=== PATIENT | male | born 1980 | race Caucasian/White ===

== ENCOUNTER 2019-08-16 02:06 | Emergency (ER) | payer SELFPAY ==
[~2019-08-16] VITALS: Ht 172.7 cm; Wt 70.8 kg
[2019-08-16 02:22] VITALS: BP 132/98
[2019-08-16] MEDS ORDERED: MORPHINE SULFATE 4 MG/ML SYR IVP ONE ×2 (02:40→03:35)
[2019-08-16] MEDS ORDERED: KETOROLAC 30 MG/ML VIAL IVP ONE (02:40)
[2019-08-16] MEDS ORDERED: LIDOCAINE/EPI 1% 1:100000 20 ML VIAL INJ ONE (02:40)
[2019-08-16] MEDS ORDERED: LIDOCAINE JELLY 2% 30 ML TUBE TP ONE (02:40)
--- NOTE | 2019-08-16 02:40 | NUR ---
39 Y/O MALE BIB SELF FOR PENILE PAIN X3 HOURS AFTER HAVING INTERCOURSE WITH AND HAD A PENILE RING "STUCK ON PENIS". PATIENT STATES HE HAS BURNING UPON URINATION. PAIN IS A 10/10. PENILE REGION IS SWOLLEN AND PINK. ERMD MADE AWARE OF STATUS. SIDE RAILSX1. PLACED ONE MONITOR. NKDA PMH:DENIES RX:DENIES
--- NOTE | 2019-08-16 02:40 | NUR ---
PT TO ER BED 1
--- NOTE | 2019-08-16 02:52 | NUR ---
Dr. Watkins examining patient.
[2019-08-16] MEDS ORDERED: PROPOFOL 200 MG/20 ML VIAL IV ONE (03:20)
[2019-08-16] MEDS ORDERED: NACL 0.9% 1,000 ML IV ONE (03:35)
[2019-08-16 04:07] VITALS: BP 132/98
--- NOTE | 2019-08-16 04:07 | NUR ---
Patient discharged with v/s stable. Written and verbal after care instructions given and explained. Patient verbalized understanding. Ambulatory with steady gait. All questions addressed prior to discharge. Advised to follow up with PMD.
== END 2019-08-16 04:07 | disposition home or self-care (01) ==
LOC: EDSEX 02:06 → MED 02:06
DX: S30.852A Superficial foreign body of penis, initial encounter (principal); X58.XXXA Exposure to other specified factors, initial encounter; Y93.89 Activity, other specified; Y92.89 Other specified places as the place of occurrence of the external cause; Y99.8 Other external cause status
CPT/HCPCS: 96374; 96375; 96376; 99283; J1885; J2270; J2001; J2704